=== PATIENT | female | born 1985 | race Caucasian/White ===

== ENCOUNTER 2019-10-27 15:04 | Emergency (ER) | payer SELFPAY ==
--- NOTE | 2019-10-27 15:39 | EDM.PDOC ---
ED HPI GENERAL MEDICAL PROBLEM - General Chief Complaint: ENT Problem Stated Complaint: SORE THROAT Time Seen by Provider: 10/27/19 15:30 Source of Information: Reports: Patient History Limitations: Reports: No Limitations - History of Present Illness INITIAL COMMENTS - FREE TEXT/NARRATIVE: 34-year-old female who is a "strep carrier" had a sore throat for the last 3 days with swollen submandibular glands. Mild runny nose, no cough, no nausea or vomiting. She thinks she has been running low-grade fevers. She is here to be checked for strep throat. Onset: Gradual (3 to 4 days) Location: Reports: Other (Throat hurts) Throat Pain Score (Numeric/FACES): 6 - Related Data Allergies Allergy/AdvReac Type Severity Reaction Status Date / Time amoxicillin Allergy Anaphylactic Verified 10/27/19 15:20 Shock ciprofloxacin [From Cipro] Allergy Abdominal Verified 10/27/19 15:20 Pain iodine Allergy Anaphylactic Verified 10/27/19 15:20 Shock metoclopramide [From Reglan] Allergy Tachycardia Verified 10/27/19 15:20 Penicillins Allergy Anaphylactic Verified 10/27/19 15:20 Shock shrimp Allergy Anaphylactic Verified 10/27/19 15:20 Shock Home Meds: Home Meds NK [No Known Home Meds] 10/27/19 [History] Past Medical History HEENT History: Reports: Otitis Media Respiratory History: Reports: Asthma Gastrointestinal History: Reports: Other (See Below) Other Gastrointestinal History: colitis [employer] History: Reports: Endometriosis Neurological History: Reports: Seizure - Infectious Disease History Infectious Disease History: Reports: Hepatitis C - Past Surgical History GI Surgical History: Reports: Appendectomy, Cholecystectomy Social & Family History - Tobacco Use Smoking Status *Q: Current Every Day Smoker Years of Tobacco use: 15 Packs/Tins Daily: 0.5 - Caffeine Use Caffeine Use: Reports: Coffee - Recreational Drug Use Recreational Drug Use: No ED ROS ENT - Review of Systems Review Of Systems: See Below Constitutional: Reports: Fever, Chills, Malaise HEENT: Reports: Rhinitis, Throat Pain. Denies: Ear Pain Respiratory: Denies: Shortness of Breath, Cough Cardiovascular: Denies: Chest Pain GI/Abdominal: Denies: Abdominal Pain, Nausea, Vomiting Skin: Reports: No Symptoms. Denies: Rash Neurological: Denies: Headache ED EXAM, ENT - Physical Exam Exam: See Below Exam Limited By: No Limitations General Appearance: Alert, No Apparent Distress Ears: Normal TMs Mouth/Throat: Other (Patient does have tonsillar erythema with exudate especially on the right tonsil) Head: Atraumatic Neck: Lymphadenopathy (R) (Moderate lymphadenopathy of the right and left cervical glands), Lymphadenopathy (L) Respiratory/Chest: No Respiratory Distress, Lungs Clear Course - Vital Signs Last Recorded V/S: Last Vital Signs Temp 97.0 F 10/27/19 15:24 Pulse 99 10/27/19 15:24 Resp 14 10/27/19 15:24 BP 121/80 10/27/19 15:24 Pulse Ox 98 10/27/19 15:24 - Re-Assessments/Exams Free Text/Narrative Re-Assessment/Exam: 10/27/19 15:39 Rapid strep was obtained. 10/27/19 16:04 Strep is positive, patient will be placed on 300 mg clindamycin 3 times a day for at least 7 days. She can recheck in 3 to 4 days if not improving. Departure - Departure Time of Disposition: 16:13 Disposition: Home, Self-Care 01 Clinical Impression: Strep pharyngitis - Discharge Information Instructions: Strep Throat Referrals: PCP,None [Primary Care Provider] - Forms: ED Department Discharge Care Plan Goals: Take 2 pills of clindamycin 3 times a day for at least 7 days, finish the medicine if not completely well and back to normal after the first 7 days. Drink lots of fluids and use ibuprofen or naproxen for pain if needed. Recheck in 2 to 3 days if not improving.
== END 2019-10-27 16:15 | disposition home or self-care (01) ==
LOC: JP.ED 15:04
DX: J02.0 Streptococcal pharyngitis (principal); J45.909 Unspecified asthma, uncomplicated; F17.210 Nicotine dependence, cigarettes, uncomplicated; Z88.1 Allergy status to other antibiotic agents; Z88.8 Allergy status to other drugs, medicaments and biological substances; Z88.0 Allergy status to penicillin; Z91.013 Allergy to seafood
CPT/HCPCS: 87880-QW; 99283